=== PATIENT | male | born 1990 | race Caucasian/White ===

== ENCOUNTER 2018-06-16 08:27 | Emergency (ER) | payer OTHER ==
[~2018-06-16] VITALS: Ht 193 cm; Wt 149.7 kg
[~2018-06-16 08:27] MED LIST: CLONAZEPAM 1 MG1 M1 PO; DIPHENHIST50 MG PO; LOMAIRA8 MG PO
[2018-06-16] MEDS ORDERED: LIPITOR 20 MG T20 M1 PO (08:34)
[2018-06-16] MEDS ORDERED: OMEPRAZOLE40 MG PO (08:36)
[2018-06-16] MEDS ORDERED: REXULTI2 MG PO (08:36)
[2018-06-16] MEDS ORDERED: VITAMIN D1000 UNI1 (08:37)
[2018-06-16 09:00] LABS: HEMATOCRIT 45.8 % (42.0-52.0); HEMOGLOBIN 15.5 gm/dL (14.0-18.0); MCHC 33.8 g/dL (28.0-37.0); MCV 82.6 fL (80.0-100.0); MPV 7.5 fl. (7.2-11.1); NUCLEATED RBCS 0 /100WBC; PLATELET COUNT* 314 thou/uL (150-400); RBC 5.54 mil/uL (4.50-6.00); RDW-CV 12.8 % (10.5-14.5); WBC 13.3 thou/uL (4.0-11.0)
[2018-06-16 09:21] LABS: ALBUMIN 3.5 g/dL (3.4-5.0); ALKALINE PHOSPHATASE 79 U/L (46-116); ANION GAP 7 mmol/L (7-16); BUN 7 mg/dL (7-18); CALCIUM 8.8 mg/dL (8.5-10.1); CHLORIDE 103 mmol/L (98-107); CO2 29 mmol/L (21-32); CREATININE 1.2 mg/dL (0.6-1.3); GLUCOSE 115 mg/dL (70-99); POTASSIUM 3.6 mmol/L (3.5-5.1); SGOT 28 U/L (15-37); SGPT 68 U/L (30-65); SODIUM 139 mmol/L (136-145); TOTAL BILIRUBIN 0.4 mg/dL (<0.1-1.0); TOTAL PROTEIN 7.1 g/dL (6.4-8.2); TROPONIN-I LEVEL <0.06 ng/mL (<0.06)
[2018-06-16] MEDS ORDERED: VENTOLIN HFA 1818 GM INH (09:36)
[2018-06-16] MEDS ORDERED: ZPAK PO (09:36)
[2018-06-16 09:45] VITALS: BP 123/81
[2018-06-16 10:07] LABS: ABSOLUTE EOSINOPHILS 0.7 thou/uL (0.0-0.7); ABSOLUTE LYMPHOCYTES 2.8 thou/uL (0.8-5.3); ABSOLUTE MONOCYTES 1.1 thou/uL (0.0-1.2); ABSOLUTE NEUTROPHILS 8.8 thou/uL (1.6-8.1)
[2018-06-16 10:08] LABS: PLATELET ESTIMATE ADEQUATE
--- NOTE | 2018-06-16 11:40 | EKG ---
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
== END 2018-06-16 09:46 | disposition home or self-care (01) ==
LOC: M.ERS 08:27
PROVIDERS: Emergency Medicine Emergency Medical Services
DX: J18.9 Pneumonia, unspecified organism (principal); F41.9 Anxiety disorder, unspecified

== ENCOUNTER 2019-02-19 02:58 | Emergency (ER) | payer OTHER ==
[~2019-02-19] VITALS: Ht 193 cm; Wt 149.7 kg
[~2019-02-19 02:58] MED LIST changes: +LIPITOR 20 MG T20 M1 PO; +OMEPRAZOLE40 MG PO; +REXULTI2 MG PO; +VENTOLIN HFA 1818 GM INH; +VITAMIN D1000 UNI1; +ZPAK PO
[2019-02-19] MEDS ORDERED: LEXAPRO 10 MG T10 M2 PO (03:10)
[2019-02-19] MEDS ORDERED: KEFLEX500 M1 PO (03:28)
[2019-02-19] MEDS ORDERED: BACTRIM DS TAB1 EACH PO (03:28)
[2019-02-19] MEDS ORDERED: NORCO 5-325 TA1 EAC1 PO (03:28)
[2019-02-19 03:37] VITALS: BP 138/94
== END 2019-02-19 03:37 | disposition home or self-care (01) ==
LOC: M.ERS 02:58
DX: L03.114 Cellulitis of left upper limb (principal); Z87.01 Personal history of pneumonia (recurrent)

== ENCOUNTER 2019-03-15 12:10 | Inpatient (IN) | payer OTHER ==
[~2019-03-15] VITALS: Ht 193 cm; Wt 149.7 kg
[~2019-03-15 12:10] MED LIST changes: +BACTRIM DS TAB1 EACH PO; +KEFLEX500 M1 PO; +LEXAPRO 10 MG T10 M2 PO; +NORCO 5-325 TA1 EAC1 PO
[2019-03-15 12:20] VITALS: BP 152/89
[2019-03-15 12:52] LABS: ABSOLUTE BASOPHILS 0.2 thou/uL (0.0-0.2); ABSOLUTE EOSINOPHILS 0.4 thou/uL (0.0-0.7); ABSOLUTE LYMPHOCYTES 1.8 thou/uL (0.8-5.3); ABSOLUTE MONOCYTES 1.9 thou/uL (0.0-1.2); ABSOLUTE NEUTROPHILS 9.9 thou/uL (1.6-8.1); BASOPHILS 1.2 %; EOSINOPHILS 2.8 %; HEMATOCRIT 44.7 % (42.0-52.0); HEMOGLOBIN 15.5 gm/dL (14.0-18.0); MCH 28.8 pg (26.0-34.0); MCHC 34.7 g/dL (28.0-37.0); MONOCYTES 13.2 %; MPV 7.4 fl. (7.2-11.1); NUCLEATED RBCS 0 /100WBC; PLATELET COUNT* 308 thou/uL (150-400); POLYS 69.8 %; RBC 5.39 mil/uL (4.50-6.00); RDW-CV 13.8 % (10.5-14.5); WBC 14.2 thou/uL (4.0-11.0)
[2019-03-15 12:55] LABS: CALCIUM 9.1 mg/dL (8.5-10.1); CREATININE 1.1 mg/dL (0.6-1.3); POTASSIUM 3.8 mmol/L (3.5-5.1)
[2019-03-15 12:55] LABS: INFLUENZA A ANTIGEN Negative (Negative); INFLUENZA B ANTIGEN Negative (Negative)
[2019-03-15 13:00] LABS: ALBUMIN 4.2 g/dL (3.4-5.0); TOTAL BILIRUBIN 0.7 mg/dL (<0.1-1.0); TOTAL PROTEIN 8.4 g/dL (6.4-8.2)
[2019-03-15 15:59] VITALS: BP 135/77
[2019-03-15 16:46] VITALS: BP 128/80
[2019-03-15 19:20] VITALS: BP 119/76
[2019-03-15 23:51] VITALS: BP 124/84
[2019-03-16 04:00] VITALS: BP 109/58
[2019-03-16 04:48] LABS: CALCIUM 8.4 mg/dL (8.5-10.1); CREATININE 1.3 mg/dL (0.6-1.3); HEMOGLOBIN 13.6 gm/dL (14.0-18.0); MCH 28.7 pg (26.0-34.0); MCHC 33.9 g/dL (28.0-37.0); MCV 84.5 fL (80.0-100.0); MPV 7.5 fl. (7.2-11.1); NUCLEATED RBCS 0 /100WBC; PLATELET COUNT* 282 thou/uL (150-400); POTASSIUM 3.5 mmol/L (3.5-5.1); RBC 4.74 mil/uL (4.50-6.00); RDW-CV 14.1 % (10.5-14.5)
[2019-03-16 06:53] LABS: ABSOLUTE MONOCYTES 0.4 thou/uL (0.0-1.2); ABSOLUTE NEUTROPHILS 12.6 thou/uL (1.6-8.1); PLATELET ESTIMATE ADEQUATE
[2019-03-16 06:54] LABS: ANISOCYTOSIS 1+; POIKILOCYTOSIS 1+
[2019-03-16 08:00] VITALS: BP 124/69
[2019-03-16 08:40] LABS: AMP/METHAMP Negative (Negative); BARBITURATES Negative (Negative); BENZODIAZEPINES Negative (Negative); COCAINE Negative (Negative); METHADONE Negative (Negative); OPIATES Negative (Negative); PCP Negative (Negative); THC Negative (Negative)
[2019-03-16 12:00] VITALS: BP 128/64
[2019-03-16 19:50] VITALS: BP 134/83
[2019-03-17 04:35] LABS: ABSOLUTE BASOPHILS 0.1 thou/uL (0.0-0.2); ABSOLUTE EOSINOPHILS 0.1 thou/uL (0.0-0.7); ABSOLUTE LYMPHOCYTES 2.9 thou/uL (0.8-5.3); ABSOLUTE MONOCYTES 1.2 thou/uL (0.0-1.2); ABSOLUTE NEUTROPHILS 7.9 thou/uL (1.6-8.1); BASOPHILS 0.5 %; EOSINOPHILS 0.9 %; HEMATOCRIT 40.2 % (42.0-52.0); HEMOGLOBIN 13.5 gm/dL (14.0-18.0); LYMPHOCYTES 23.9 %; MCH 28.4 pg (26.0-34.0); MCHC 33.6 g/dL (28.0-37.0); MCV 84.5 fL (80.0-100.0); MONOCYTES 10.1 %; MPV 7.3 fl. (7.2-11.1); NUCLEATED RBCS 0 /100WBC; PLATELET COUNT* 273 thou/uL (150-400); POLYS 64.6 %; RBC 4.76 mil/uL (4.50-6.00); WBC 12.2 thou/uL (4.0-11.0)
--- NOTE | 2019-03-17 10:04 | EKG ---
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 : 1990 Requested By: Isidoro Miller Order Number: [id number] MD: Eh Nathan Measurements Intervals [place] Rate: 86 P: 54 UT: 169 QRS: 4 QRSD: 103 T: 15 QT: 364 QTc: 436 Interpretive Statements Sinus rhythm Probable left ventricular hypertrophy Baseline wander in lead(s) V1 Compared to ECG 06/16/2018 08:34:11 No significant changes Electronically Signed On 03-17-2019 10:03:13 FUR POINTER by Eh Nathan [email or web address] <ELECTRONICALLY SIGNED> By: Eh Nathan MD, FAC 03/17/19 1003 1437 1437 Eh Nathan MD, [facility] /EPI
[2019-03-17 12:32] VITALS: BP 134/83
[2019-03-17] MEDS ORDERED: AZITHROMYCIN 2250 MG PO (13:18)
[2019-03-17] MEDS ORDERED: CEFDINIR300 MG PO (13:18)
[2019-03-17 13:55] VITALS: BP 134/83
== END 2019-03-17 13:50 | disposition home or self-care (01) | DRG 177 ==
LOC: M.ERS 12:10 → M.3W 14:59 → M.TBA-ER 14:59 → M.3W 16:26
PROVIDERS: Family Medicine; Physician Assistant; ADMIT Internal Medicine
DX: J15.6 Pneumonia due to other Gram-negative bacteria (principal); J96.01 Acute respiratory failure with hypoxia; R65.11 Systemic inflammatory response syndrome (SIRS) of non-infectious origin with acute organ dysfunction; E78.00 Pure hypercholesterolemia, unspecified; F41.9 Anxiety disorder, unspecified; Z79.899 Other long term (current) drug therapy; Z87.01 Personal history of pneumonia (recurrent)